=== PATIENT | female | born 2000 | race Two or more races ===

== ENCOUNTER 2024-10-22 14:54 | Inpatient (IN) | payer OTHER ==
[~2024-10-22] VITALS: Ht 157.5 cm; Wt 62.6 kg
[2024-10-22 15:35] VITALS: BP 108/71
[2024-10-22] MEDS ORDERED: PRENATAL TABLE1 EAC1 PO (15:53)
[2024-10-22] MEDS ORDERED: CITRIC ACID/SODIUM CITRATE 30 ML BLIST.PACK PO SCH (16:15)
[2024-10-22] MEDS ORDERED: RINGERS SOLUTION,LACTATED 1,000 ML IV SCH (16:30)
[2024-10-22 16:34] LABS: HEMATOCRIT 35.5 % (36.0-45.00); MEAN CORPUSCULAR HEMOGLOBIN 29.8 pg (27.00-32.0); MEAN CORPUSCULAR HGB CONC 33.9 g/dl (32.0-36.0); PLATELET COUNT 242 K/uL (150-450); RED BLOOD COUNT 4.03 M/uL (4.00-6.00); RED CELL DISTRIBUTION WIDTH 13.5 % (11.5-14.5)
[2024-10-22 16:55] LABS: INR < 0.93; PARTIAL THROMBOPLASTIN TIME 26.8 SECONDS (22.0-34.0); PROTHROMBIN TIME 10.2 SECONDS (9.0-11.5)
[2024-10-22 17:01] LABS: BILIRUBIN TOTAL 0.22 mg/dL (0.3-1.2); CALCIUM 9.1 mg/dL (8.5-10.1); CREATININE SERUM 0.4 mg/dL (0.55-1.02); GFR 197.8; GLOBULINA 3.5 G/DL (2.4-3.5); POTASSIUM 3.79 mEq/L (3.5-5.1); TOTAL PROTEIN 6.5 gm/dL (6.4-8.2)
[2024-10-22] MEDS ORDERED: POVIDONE-IODINE 118 ML BOTT TOP ONE ×2 (17:10→17:45)
[2024-10-22] MEDS ORDERED: MAGNESIUM SULFATE IN WATER 500 ML IV SCH (17:30)
[2024-10-22 18:53] VITALS: BP 98/62
[2024-10-22 23:15] VITALS: BP 103/66
[2024-10-23 03:13] VITALS: BP 103/64
[2024-10-23 06:19] VITALS: BP 96/59; O2SAT 99
[2024-10-23 10:54] VITALS: BP 99/65
[2024-10-23 16:06] VITALS: BP 100/63
[2024-10-24 01:00] VITALS: BP 92/55
[2024-10-24 08:00] VITALS: BP 92/59
[2024-10-24 17:20] VITALS: BP 92/60
[2024-10-25] VITALS: BP 93/60
[2024-10-25 08:12] VITALS: BP 88/54
[2024-10-25 16:15] VITALS: BP 101/67
[2024-10-26 01:00] VITALS: BP 90/56
[2024-10-26 08:00] VITALS: BP 93/59
[2024-10-26] MEDS ORDERED: AZITHROMYCIN 500 MG TABLET PO NR (11:30)
[2024-10-26] MEDS ORDERED: ENOXAPARIN SODIUM 40 MG/0.4 ML SYRINGE SUBCUTANEO NR (11:30)
[2024-10-26 18:21] VITALS: BP 95/60
[2024-10-27 01:00] VITALS: BP 90/60
[2024-10-27 08:09] VITALS: BP 90/60
[2024-10-27] MEDS ORDERED: AZITHROMYCIN 500 MG TABLET PO SCH (09:00)
[2024-10-27] MEDS ORDERED: ENOXAPARIN SODIUM 40 MG/0.4 ML SYRINGE SUBCUTANEO SCH (09:00)
[2024-10-27 17:57] VITALS: BP 98/63
[2024-10-28 00:04] VITALS: BP 95/66
[2024-10-29] VITALS: BP 91/58
[2024-10-29 08:46] VITALS: BP 94/61
[2024-10-29 15:43] VITALS: BP 94/61
[2024-10-30] VITALS: BP 90/57
[2024-10-30 09:08] VITALS: BP 100/65
[2024-10-30 12:31] LABS: HEMATOCRIT 34.2 % (36.0-45.00); HEMOGLOBIN 11.6 g/dL (12.0-15.00); MEAN CELL VOLUME 88.1 fL (80.00-100.00); MEAN CORPUSCULAR HEMOGLOBIN 29.8 pg (27.00-32.0); MEAN CORPUSCULAR HGB CONC 33.9 g/dl (32.0-36.0); PLATELET COUNT 267 K/uL (150-450); RED BLOOD COUNT 3.88 M/uL (4.00-6.00); RED CELL DISTRIBUTION WIDTH 13.3 % (11.5-14.5)
[2024-10-30 16:01] VITALS: BP 98/60
[2024-10-31 00:35] VITALS: BP 91/57
[2024-10-31 08:57] VITALS: BP 100/67
[2024-10-31 15:39] VITALS: BP 94/60
[2024-11-01] VITALS: BP 102/68
[2024-11-01 07:43] VITALS: BP 106/68
[2024-11-01 16:32] VITALS: BP 99/64
[2024-11-02] VITALS: BP 95/59
[2024-11-02 08:15] VITALS: BP 102/67
[2024-11-02 15:50] VITALS: BP 97/63
[2024-11-03] VITALS: BP 93/59
[2024-11-03 08:36] VITALS: BP 98/64
[2024-11-03 16:28] VITALS: BP 100/64
[2024-11-04 00:50] VITALS: BP 90/55
[2024-11-04 08:38] VITALS: BP 103/68
== END 2024-11-04 10:12 | disposition home or self-care (01) | DRG 817 ==
LOC: LDR 14:54 → OB/GYN 10-23 09:16
PROVIDERS: Obstetrics & Gynecology; ADMIT Obstetrics & Gynecology Maternal & Fetal Medicine; ATTEND Obstetrics & Gynecology Maternal & Fetal Medicine
PROC: 4A1HXCZ Monitoring of Products of Conception, Cardiac Rate, External Approach (ICD-10-PCS; 2024-10-22)
PROC: 0UVC7ZZ Restriction of Cervix, Via Natural or Artificial Opening (ICD-10-PCS; principal; 2024-10-22 17:30)
PROC: BU4CZZZ Ultrasonography of Uterus and Ovaries (ICD-10-PCS; 2024-10-27)
PROC: BU4CZZZ Ultrasonography of Uterus and Ovaries (ICD-10-PCS; 2024-10-30)
PROC: BY4CZZZ Ultrasonography of Second Trimester, Single Fetus (ICD-10-PCS; 2024-11-03)
PROC: BU4CZZZ Ultrasonography of Uterus and Ovaries (ICD-10-PCS; 2024-11-03)
DX: O34.32 Maternal care for cervical incompetence, second trimester (principal); O60.02 Preterm labor without delivery, second trimester; O26.872 Cervical shortening, second trimester; O36.8120 Decreased fetal movements, second trimester, not applicable or unspecified; O26.842 Uterine size-date discrepancy, second trimester; Z3A.22 22 weeks gestation of pregnancy

== ENCOUNTER 2025-02-07 09:35 | Inpatient (IN) | payer OTHER ==
[~2025-02-07] VITALS: Ht 157.5 cm; Wt 68.0 kg
[2025-02-07] VITALS (7 sets, daily range): BP systolic 99–116; BP diastolic 60–72; O2SAT 100
[~2025-02-07 09:35] MED LIST: PRENATAL TABLE1 EAC1 PO
[2025-02-07] MEDS ORDERED: RINGERS SOLUTION,LACTATED 1,000 ML IV SCH (09:45)
[2025-02-07] MEDS ORDERED: AMPICILLIN SODIUM 2,000 MG VIAL IV ONE (09:45)
[2025-02-07] MEDS ORDERED: ENDOMETRIN100 MG VAG (09:50)
[2025-02-07 10:03] LABS: BASO % 0.2 % (0.1-1.2); EOS # 0.04 (0.04-0.54); EOS % 0.4 % (0.7-7.0); LYMPH # 1.40 (1.18-3.74); LYMPH % 12.4 % (19.3-53.1); MEAN PLATELET VOLUME 11.70 fl (9.4-12.4); MONO # 0.75 (0.24-0.82); MONO % 6.7 % (4.7-12.5); NEUT # 8.57 (1.56-6.13); NEUT % 76.0 % (34.0-71.1); RED CELL DISTRIBUTION WIDTH 13.2 % (11.6-14.4)
[2025-02-07 10:26] LABS: ALT/SGPT 25.0 U/L (12-78); AST/SGOT 20.0 U/L (15-37); BILIRUBIN TOTAL 0.43 mg/dL (0.3-1.2); BUN CREA RATIO 20.0 (7.0-25.0); CREATININE SERUM 0.44 mg/dL (0.55-1.02); GFR 177.2; GLOBULINA 3.7 G/DL (2.4-3.5); GLUCOSE FASTING 80.0 mg/dL (65-100); OSMOLALITY SERUM 273.0 MOSM/KG (275-295)
[2025-02-07 10:35] LABS: INR < 0.93
[2025-02-07] MEDS ORDERED: OXYTOCIN 500 ML IV ONE (10:45)
[2025-02-07] MEDS ORDERED: AMPICILLIN SODIUM 1,000 MG VIAL IV SCH (13:00)
[2025-02-07] MEDS ORDERED: OXYTOCIN 1,000 ML IV ONE (15:00)
[2025-02-07] MEDS ORDERED: LIDOCAINE HCL 1% 10ML VIAL PERCUT ONE (15:00)
[2025-02-07] MEDS ORDERED: ERYTHROMYCIN BASE OPHT 1GM EACH TUBE OP ONE (15:00)
[2025-02-07] MEDS ORDERED: CHLORHEXIDINE GLUCONATE 120 ML BOTTLE TOP ONE (15:00)
[2025-02-07] MEDS ORDERED: OXYTOCIN 1,000 ML IV SCH (15:15)
[2025-02-07] MEDS ORDERED: ACETAMINOPHEN WITH CODEINE 1 UDTAB TABLET PO PRN (15:15)
[2025-02-08] VITALS: BP 113/76
[2025-02-08 08:14] VITALS: BP 101/69
[2025-02-08 18:08] VITALS: BP 98/64
[2025-02-09 00:15] VITALS: BP 109/74
[2025-02-09 08:00] VITALS: BP 102/66
== END 2025-02-09 12:34 | disposition home or self-care (01) | DRG 807 ==
LOC: LDR 09:35 → OB/GYN 15:45
PROVIDERS: Obstetrics & Gynecology; ADMIT Obstetrics & Gynecology Maternal & Fetal Medicine; ATTEND Obstetrics & Gynecology Maternal & Fetal Medicine
PROC: 10E0XZZ Delivery of Products of Conception, External Approach (ICD-10-PCS; principal; 2025-02-07)
PROC: 0KQM0ZZ Repair Perineum Muscle, Open Approach (ICD-10-PCS; 2025-02-07)
PROC: 4A1HXCZ Monitoring of Products of Conception, Cardiac Rate, External Approach (ICD-10-PCS; 2025-02-07)
DX: O70.1 Second degree perineal laceration during delivery (principal); Z37.0 Single live birth; Z3A.37 37 weeks gestation of pregnancy